=== PATIENT | male | born 2000 ===

== ENCOUNTER 2022-06-13 18:58 | Outpatient (CLI) | payer OTHER, SELFPAY | END 2022-06-13 18:59 | disposition home or self-care (01) | PROVIDERS: Visit Provider Emergency Medicine Emergency Medical Services | DX: R00.0 Tachycardia, unspecified (principal) | CPT/HCPCS: A0425; A0427 ==

== ENCOUNTER 2022-06-13 19:15 | Emergency (ER) | payer OTHER, SELFPAY ==
[2022-06-13 19:20] VITALS: BP 156/93; PULSE 105; RESP 16; TEMP 37; O2SAT 98
--- NOTE | 2022-06-13 19:37 | ED_ITS ---
HPI - Anxiety General Chief Complaint: Anxiety Stated Complaint: Tachycardia Time Seen by Provider: 06/13/22 19:33 History of Present Illness HPI narrative: This 21-year-old male comes in reporting anxiety symptoms and increased heart rate. He states that he took a gummy at a bowl with THC and now is feeling the symptoms. He states that he has done this in the past but is unsure of how many mg of THC were involved in this dose. He denies using any alcohol or other street drugs. He states he is otherwise in good health. At the time of my arrival in the room he began to feel nauseated and did have vomiting. Related Data Home Medications Medication Instructions Recorded Confirmed No Known Home Medications 06/13/22 06/13/22 Allergies Allergy/AdvReac Type Severity Reaction Status Date / Time No Known Drug Allergies Allergy Verified 06/13/22 19:20 Review of Systems Status of ROS: Reports: 10 or more systems reviewed and unremarkable except as noted in History and below Narrative: Constitutional: No fevers, no weight gain or loss. Eyes: No discharge. No vision changes. HENT: No congestion, no sore throat, no ear pain. Cardiovascular: No chest pain, no palpitations. He does report increased heart rate. Respiratory: No shortness of breath, no wheezes, no cough. Gastrointestinal: No abdominal pain, no diarrhea. Nausea with vomiting. Genitourinary: No dysuria, no hematuria. Musculoskeletal: Normal range of motion. Skin: No rashes, no pruritis. Neurological: No dizziness, weakness, sensory change, speech change. Endo/Heme/Allergies: No bruising or bleeding. No polydipsia. Pysch: no suicidality, no insomnia. Reports anxiety. All other systems reviewed and are negative. PFSH PFS Social History Smoking Status: Smoker, status unknown Do you use any of these nicotine containing products: None Second hand tobacco smoke exposure: No How often do you have a drink containing alcohol: monthly or less AUDIT-C Alcohol total score: 1 Non-prescribed substance use: marijuana (any form) service: No Exam Narrative: Exam Narrative: Constitutional: Well-developed, well-nourished, no acute distress. HEENT: Normocephalic, atraumatic. Neck: Normal range of motion. Nontender. Supple. Heart: Regular. No murmurs. Tachycardia, rate around 105 beats per minute. Intact distal pulses. Lungs: Clear to auscultation. No chest discomfort. No wheezes, rhonchi, or rales. Abdomen: Normal bowel sounds. Nontender. No rebound tenderness. Genitalia: Deferred. Back: No midline tenderness. Normal range of motion. Extremities: Normal range of motion. No injury. Skin: Intact. No rash. Warm. No erythema or pallor. Neurologic: No altered sensation. No weakness. Alert and oriented. Psychiatric: No suicidality. No anxiety or depression. No insomnia. Nursing notes and vitals signs are reviewed. Const: Vital Signs, click to edit/add: Vital Signs - 24 hr 06/13/22 19:20 06/13/22 19:49 Temperature 98.6 F 98.2 F Pulse Rate [Right Pulse Oximeter] 105 H 89 Respiratory Rate 16 14 Blood Pressure [Le ft Upper Arm] 156/93 H 126/75 Pulse Oximetry 98 99 Oxygen Delivery Me thod Room Air Room Air Course Vital Signs Vital signs: Initial Vital Signs Temperature 98.6 F 06/13/22 19:20 Temperature Source Temporal Artery Scan 06/13/22 19:20 Pulse Rate 105 H 06/13/22 19:20 Pulse Rhythm 06/13/22 19:20 Respiratory Rate 16 06/13/22 19:20 Blood Pressure 156/93 H 06/13/22 19:20 Blood Pressure Mean 114 06/13/22 19:20 Blood Pressure Position Semi-Fowlers 06/13/22 19:20 Pulse Oximetry 98 06/13/22 19:20 Oxygen Delivery Method 06/13/22 19:20 Vital Signs Temperature 98.6 F 06/13/22 19:20 Pulse Rate 105 H 06/13/22 19:20 Respiratory Rate 16 06/13/22 19:20 Blood Pressure 156/93 H 06/13/22 19:20 Pulse Oximetry 98 06/13/22 19:20 Oxygen Delivery Method 06/13/22 19:20 Temperature 98.2 F 06/13/22 19:49 Pulse Rate 89 06/13/22 19:49 Respiratory Rate 14 06/13/22 19:49 Blood Pressure 126/75 06/13/22 19:49 Pulse Oximetry 99 06/13/22 19:49 Oxygen Delivery Method 06/13/22 19:49 MDM - Anxiety MDM Narrative Medical decision making narrative: This patient comes in with symptoms after taking a gummy edible. An IV was established where he received L of normal saline, 4 mg of Zofran, and 0.5 mg of Ativan. This brought improvement of his symptoms. Lab results returned with normal findings. He likely ingested a type of THC in the gummy ediblel that did not sit well with him. His vital signs have normalized. He is okay to return home. Lab Data Labs: Lab Results 06/13/22 06/13/22 Range/Units 19:40 19:40 WBC 7.14 (4.50-11.00) K/uL RBC 4.73 (4.30-5.90) m/uL Hgb 15.2 (13.5-17.5) gm/dL Hct 42.9 (37.0-53.0) % MCV 91 (80-100) fL MCH 32 (26-34) pg MCHC 35 (32-36) gm/dL RDW Coeff of Lb 12.2 (11.5-15.5) % Plt Count 166 (140-440) K/uL Neut % (Auto) 56.4 (42.0-72.0) % Lymph % (Auto) 34.9 (20-44) % [place] % (Auto) 7.1 (0.0-11.0) % Eos % (Auto) 1.0 (0.0-7.0) % Baso % (Auto) 0.6 (0.0-3.0) % Neut # (Auto) 4.03 (1.7-7.0) K/uL Lymph # (Auto) 2.49 (0.90-2.90) K/uL [place] # (Auto) 0.50 (0.00-0.90) K/UL Eos # (Auto) 0.07 (0.00-0.50) K/uL Baso # (Auto) 0.04 (0.00-0.30) K/uL Abs Immat Gran (auto) 0.00 (0.00-0.30) K/uL Imm/Tot Granulo (auto) 0.0 % Sodium 138 (135-149) mmol/L Potassium 3.1 L (3.6-5.1) mmol/L Chloride 104 (96-114) mmol/L Carbon Dioxide 24 (20-32) mmol/L BUN 17 (5-24) mg/dL Creatinine 1.0 (0.6-1.2) mg/dL Estimated GFR 111 ml/min Glucose 158 H (60-115) mg/dL Calcium 9.1 (8.7-10.8) mg/dL Discharge Plan Discharge Clinical Impression: Acute anxiety, Vomiting Patient Disposition: Home, Self-Care Condition: Improved Additional Instructions: Use [id number] medicines as needed and directed. Follow up with MD or return if worsening. Prescriptions: No Action No Known Home Medications Follow Up/Referrals: Provider,Not a Local [Primary Care Provider] - Stand Alone Forms: [facility] Info Instructions
[2022-06-13] MEDS: ONDANSETRON 2 MG/ML inj 4 MG IVP (19:42)
[2022-06-13] MEDS: LORazepam 2 MG/ML inj 0.5 MG IV (19:45)
[2022-06-13 19:48] LABS: Basophils Absolute Auto 0.04 K/uL (0.00-0.30); Basophils Percent Auto 0.6 % (0.0-3.0); Eosinophils Absolute Auto 0.07 K/uL (0.00-0.50); Hematocrit 42.9 % (37.0-53.0); Hemoglobin* 15.2 gm/dL (13.5-17.5); Lymphocytes Absolute Auto 2.49 K/uL (0.90-2.90); Lymphocytes Percent Auto 34.9 % (20-44); Mean Corpuscular HGB Conc 35 gm/dL (32-36); Mean Corpuscular Hemoglobin 32 pg (26-34); Mean Corpuscular Volume 91 fL (80-100); Monocytes Percent Auto 7.1 % (0.0-11.0); Neutrophils Absolute Auto 4.03 K/uL (1.7-7.0); Neutrophils Percent Auto 56.4 % (42.0-72.0); Platelet Count* 166 K/uL (140-440); RDW Coefficient of Variation % 12.2 % (11.5-15.5); Red Blood Count 4.73 m/uL (4.30-5.90); White Blood Count* 7.14 K/uL (4.50-11.00)
[2022-06-13 19:49] VITALS: BP 126/75; PULSE 89; RESP 14; TEMP 36.8; O2SAT 99
[2022-06-13 19:53] LABS: Slide Review Reflex No
[2022-06-13] MEDS: 0.9 % SODIUM CHLORIDE 1000 ml 1,000 ML IV (20:00)
[2022-06-13 20:02] LABS: Chloride* 104 mmol/L (96-114); Potassium* 3.1 mmol/L (3.6-5.1); Sodium* 138 mmol/L (135-149)
[2022-06-13 20:05] LABS: Blood Urea Nitrogen* 17 mg/dL (5-24); Calcium* 9.1 mg/dL (8.7-10.8); Carbon Dioxide* 24 mmol/L (20-32); Estimated Glomerular Filt Rate 111 ml/min; Glucose* 158 mg/dL (60-115)
[2022-06-13 20:35] VITALS: BP 94/84; PULSE 88; RESP 14; O2SAT 98
--- NOTE | 2022-06-13 20:39 | ED.NURSE ---
PT father (Wayne) called, given update on sons condition.
[2022-06-13 21:29] VITALS: BP 106/62; PULSE 96; RESP 14; O2SAT 98
== END 2022-06-13 21:42 | disposition home or self-care (01) ==
PROVIDERS: Emergency Provider Emergency Medicine Emergency Medical Services
DX: F41.9 Anxiety disorder, unspecified (principal); F12.10 Cannabis abuse, uncomplicated
CPT/HCPCS: 36415; 80048; 85025; 96374; 99283; 99284; J2060; J2405; J7030